=== PATIENT | male | born 1965 | race Caucasian/White ===

== ENCOUNTER 2021-09-07 10:16 | Outpatient (REF) | payer OTHER, SELFPAY ==
[2021-09-07 10:19] LABS: MANUAL DIFF FLAG NO
[2021-09-07 11:13] LABS: Basophils Percent Auto 0.3 % (0-2); Eosinophils Absolute Auto 0.1 X10*3/uL (0.0-0.4); Eosinophils Percent Auto 1.5 % (0-4); Hematocrit 44.9 % (42.0-52.0); Hemoglobin 15.6 g/dl (14.0-18.0); Imm Gran Abs Auto 0.04 X10*3/uL (0.00-0.03); Imm Gran Pct Auto 0.7 % (0.0-0.4); Lymphocytes Absolute Auto 1.8 X10*3/uL (1.2-4.9); Lymphocytes Percent Auto 29.2 % (20-40); Mean Corpuscular HGB Conc 34.7 g/dl (31.0-36.0); Mean Corpuscular Hemoglobin 31.1 pg (27.0-33.0); Mean Corpuscular Volume 89.6 fL (80.0-98.0); Mean Platelet Volume 10.3 fL (9.4-12.4); Monocytes Absolute Auto 0.6 X10*3/uL (0.1-1.2); Monocytes Percent Auto 9.3 % (2-11); Neutrophils Absolute Auto 3.5 x10*3/uL (2.0-8.3); Platelet Count 147 X10*3/uL (160-400); Red Blood Count 5.01 X10*6/uL (4.60-5.80); Red Cell Distribution Width 12.5 % (11.0-16.0)
[2021-09-07 11:17] LABS: Appearance Urine CLEAR; Color Urine YELLOW; Glucose Urine UA NEG (NEG); Leukocyte Esterase Urine NEG (NEG); Nitrite Urine NEG (NEG); Urine Blood NEG (NEG); Urine Ketones NEG (NEG); Urine Protein NEG (NEG-TRACE)
[2021-09-07 11:59] LABS: Alanine Aminotransferase 96 U/L (0-40); Albumin Level 4.3 g/dL (3.5-5.0); Alkaline Phosphatase 79 U/L (39-117); Anion Gap 13 (12-20); Aspartate Amino Transferase 43 U/L (5-37); Bilirubin Total 1.6 mg/dL (0.0-1.0); Blood Urea Nitrogen 23 mg/dL (9-16); Calcium 9.7 mg/dL (8.4-10.2); Carbon Dioxide 26 mmol/L (22-29); Chloride 102 mmol/L (96-108); Cholesterol 166 mg/dL; Estimated Glomerular Filt Rate > 60; Glucose Fasting 191 mg/dL (60-99); HDL Cholesterol 32 mg/dL; LDL Cholesterol Calculated 85 mg/dl; Potassium 4.1 mmol/L (3.3-5.1); Sodium 137 mmol/L (135-145); Total Protein 7.1 g/dL (6.5-8.0); Triglycerides 245 mg/dL
== END 2021-09-07 10:17 | disposition home or self-care (01) ==
LOC: HO.LNP 10:16
PROVIDERS: Visit Provider Internal Medicine
DX: Z00.00 Encounter for general adult medical examination without abnormal findings (principal); I10 Essential (primary) hypertension; R97.20 Elevated prostate specific antigen [PSA]; D69.6 Thrombocytopenia, unspecified; K75.81 Nonalcoholic steatohepatitis (NASH)
CPT/HCPCS: 80053; 80061; 81003; 84153; 85025

== ENCOUNTER 2021-11-10 09:41 | Outpatient (REF) | payer OTHER, SELFPAY ==
--- NOTE | ~2021-11-10 | US_ITS ---
EXAMINATION: US ABDOMEN LIMITED WITH LIVER ELASTOGRAPHY CLINICAL INFORMATION: Chopra. COMPARISON: None. TECHNIQUE: Real-time imaging of the abdominal viscera. Noninvasive ultrasound liver fibrosis assessment is performed using Carl ElastPQ point quantification shear wave elastography (2D-SWE) with a C5-2 MHz transducer. Multiple elastography samples are obtained. FINDINGS: PANCREAS: Normal. The visualized pancreatic head and body are normal in appearance. The remainder of the pancreas is obscured from visualization by the overlying bowel gas. LIVER: Normal. The liver demonstrates normal size, contour and increased echogenicity. No focal lesion or intrahepatic biliary duct dilatation. The right lobe measures 20.2 cm in length. The left lobe measures 12.9 cm in length. Portal flow is hepatopedal Shear wave liver elastography median stiffness is 1.74 m/s (reference: normal median stiffness is 1.3 m/s or less). IQR/median stiffness to assess sampling precision is 0.11 (reference: good quality data set is IQR/median stiffness of 0.15 or less). GALLBLADDER: Normal. The gallbladder is physiologically distended without evidence of stones, sludge, polyps, wall thickening or pericholecystic fluid. COMMON BILE DUCT: Normal in caliber measuring 0.28 cm in diameter. RIGHT KIDNEY: There is an anechoic cyst midpole measures 1.7 x 1.5 x 1.4 cm. No hydronephrosis. No renal calculi or focal parenchymal lesions. The kidney measures 13.3 cm in maximum dimension. FREE FLUID: None. US/US abdomen jimenez w elastography IMPRESSION: 1. Hepatic steatosis without focal lesion. Anechoic cyst right kidney. 2. Liver elastography: Median liver stiffness 1.74 m/s suggestive of cACLD ruled out . REFERENCE: Society of Radiologists in Ultrasound Liver Stiffness Thresholds (2020): LIVER STIFFNESS THRESHOLDS: *Liver Stiffness equal or less than 1.3 m/s: High probability of being normal. *Liver Stiffness less than 1.7 m/s: In the absence of other known clinical signs, rules out compensated advanced chronic liver disease. *Liver Stiffness 1.7-2.1 m/s: Suggestive of compensated advanced chronic liver disease but need further test for confirmation. *Liver Stiffness over 2.1 m/s: Rules in compensated advanced chronic liver disease. *Liver Stiffness over 2.4 m/s: Suggestive of clinically significant portal hypertension. QUALITY OF DATA SET: *IQR/Median value equal or less than 0.15 implies a quality data set. *IQR/Median value over 0.15 implies a poor quality data set. SIGNIFICANT CHANGE FROM PRIOR EXAM: Significant change if liver stiffness measurement is 10% or greater from prior exam. OTHER CONSIDERATIONS: The stage of liver fibrosis may be overestimated in the setting of acute hepatitis, liver inflammation, elevated liver function tests, hepatic vascular congestion, obstructive cholestasis, non-fasting state, and infiltrative diseases such as amyloidosis and lymphoma. In some patients with NAFLD, the liver stiffness thresholds for compensated advanced chronic liver disease may be lower. In causes other than viral hepatitis and NAFLD, liver stiffness thresholds are not well established.
== END 2021-11-10 09:42 | disposition home or self-care (01) ==
LOC: HO.US 09:41
PROVIDERS: PCP Internal Medicine; Visit Provider Internal Medicine
DX: K75.81 Nonalcoholic steatohepatitis (NASH) (principal)
CPT/HCPCS: 76705; 76981

== ENCOUNTER 2022-10-19 10:32 | Outpatient (REF) | payer OTHER, SELFPAY ==
[2022-10-19 10:38] LABS: MANUAL DIFF FLAG NO
[2022-10-19 10:47] LABS: Basophils Percent Auto 0.5 % (0-2); Eosinophils Absolute Auto 0.1 X10*3/uL (0.0-0.4); Eosinophils Percent Auto 1.6 % (0-4); Hematocrit 45.4 % (42.0-52.0); Hemoglobin 16.4 g/dl (14.0-18.0); Imm Gran Abs Auto 0.05 X10*3/uL (0.00-0.03); Imm Gran Pct Auto 0.9 % (0.0-0.4); Lymphocytes Absolute Auto 1.5 X10*3/uL (1.2-4.9); Lymphocytes Percent Auto 26.2 % (20-40); Mean Corpuscular HGB Conc 36.1 g/dl (31.0-36.0); Mean Corpuscular Hemoglobin 31.3 pg (27.0-33.0); Mean Corpuscular Volume 86.6 fL (80.0-98.0); Mean Platelet Volume 10.7 fL (9.4-12.4); Monocytes Absolute Auto 0.5 X10*3/uL (0.1-1.2); Monocytes Percent Auto 8.4 % (2-11); Neutrophils Absolute Auto 3.6 x10*3/uL (2.0-8.3); Neutrophils Percent Auto 62.4 % (45-73); Platelet Count 147 X10*3/uL (160-400); Red Blood Count 5.24 X10*6/uL (4.60-5.80); Red Cell Distribution Width 12.4 % (11.0-16.0); White Blood Count 5.7 X10*3/uL (4.8-10.8)
[2022-10-19 11:12] LABS: Appearance Urine Clear; Color Urine Yellow; Glucose Urine UA 250 mg/dL (Negative); Leukocyte Esterase Urine Negative (Negative); Nitrite Urine Negative (Negative); PH 5.5 (5.0-9.0); UMIC TRIGGER UA YES; Urine Blood Negative (Negative); Urine Ketones Trace mg/dL (Negative); Urine Protein 30 (1+) mg/dL (Neg-Trace)
[2022-10-19 11:18] LABS: Bacteria Urine None Seen (None Seen); Hyaline Casts Urine 0-2 /LPF (0-2); RBC Urine 0-2 /HPF (0-2); Squamous Epithelial Cell Urine 0-2 /HPF (0-2); WBC Urine 0-5 /HPF (0-5)
[2022-10-19 11:25] LABS: Estimated Average Glucose 220 mg/dL; Hemoglobin A1c % 9.3 %
[2022-10-19 11:38] LABS: Creatinine Urine 163.08 mg/dL; Microalbum/Creatinine Ratio Ur 128.1 ug/mg cr
[2022-10-19 12:13] LABS: Alanine Aminotransferase 99 U/L (0-40); Albumin Level 4.1 g/dL (3.5-5.0); Alkaline Phosphatase 82 U/L (39-117); Anion Gap 15 (12-20); Aspartate Amino Transferase 61 U/L (5-37); Bilirubin Total 2.4 mg/dL (0.0-1.0); Blood Urea Nitrogen 14 mg/dL (9-16); Calcium 9.3 mg/dL (8.4-10.2); Carbon Dioxide 25 mmol/L (22-29); Chloride 100 mmol/L (96-108); Cholesterol 161 mg/dL; Estimated Glomerular Filt Rate > 60; Glucose Fasting 281 mg/dL (60-99); HDL Cholesterol 31 mg/dL; LDL Cholesterol Calculated 74 mg/dl; Sodium 136 mmol/L (135-145); Total Protein 6.7 g/dL (6.5-8.0); Triglycerides 281 mg/dL
[2022-10-19 12:37] LABS: PSA,Total (Free>4and<10) 2.09 ng/mL (0.00-4.00)
== END 2022-10-19 10:33 | disposition home or self-care (01) ==
LOC: HO.LNP 10:32
PROVIDERS: Visit Provider Internal Medicine
DX: Z00.00 Encounter for general adult medical examination without abnormal findings (principal); Z12.5 Encounter for screening for malignant neoplasm of prostate; R97.20 Elevated prostate specific antigen [PSA]; E11.9 Type 2 diabetes mellitus without complications; D69.6 Thrombocytopenia, unspecified
CPT/HCPCS: 80053; 80061; 81001; 82043; 83036; 84153; 85025

== ENCOUNTER 2023-10-21 10:38 | Outpatient (REF) | payer OTHER, SELFPAY ==
[2023-10-21 10:58] LABS: MANUAL DIFF FLAG NO
[2023-10-21 11:14] LABS: Basophils Percent Auto 0.3 % (0-2); Eosinophils Absolute Auto 0.1 X10*3/uL (0.0-0.4); Eosinophils Percent Auto 1.1 % (0-4); Hematocrit 45.9 % (42.0-52.0); Hemoglobin 16.1 g/dl (14.0-18.0); Imm Gran Abs Auto 0.07 X10*3/uL (0.00-0.03); Imm Gran Pct Auto 1.1 % (0.0-0.4); Lymphocytes Absolute Auto 1.8 X10*3/uL (1.2-4.9); Lymphocytes Percent Auto 28.4 % (20-40); Mean Corpuscular HGB Conc 35.1 g/dl (31.0-36.0); Mean Corpuscular Hemoglobin 31.4 pg (27.0-33.0); Mean Corpuscular Volume 89.5 fL (80.0-98.0); Mean Platelet Volume 10.6 fL (9.4-12.4); Monocytes Absolute Auto 0.6 X10*3/uL (0.1-1.2); Monocytes Percent Auto 9.4 % (2-11); Neutrophils Absolute Auto 3.7 x10*3/uL (2.0-8.3); Neutrophils Percent Auto 59.7 % (45-73); Platelet Count 157 X10*3/uL (160-400); Red Blood Count 5.13 X10*6/uL (4.60-5.80); Red Cell Distribution Width 12.8 % (11.0-16.0); White Blood Count 6.3 X10*3/uL (4.8-10.8)
[2023-10-21 11:18] LABS: Appearance Urine Clear; Color Urine Yellow; Glucose Urine UA Negative (Negative); Leukocyte Esterase Urine Trace (Negative); Nitrite Urine Negative (Negative); PH 5.5 (5.0-9.0); UMIC TRIGGER UACC YES; Urine Blood Negative (Negative); Urine Ketones Trace mg/dL (Negative); Urine Protein Trace mg/dL (Neg-Trace)
[2023-10-21 11:21] LABS: Bacteria Urine None Seen (None Seen); Hyaline Casts Urine 0-2 /LPF (0-2); RBC Urine 0-2 /HPF (0-2); Squamous Epithelial Cell Urine 0-2 /HPF (0-2); WBC Urine 0-5 /HPF (0-5)
[2023-10-21 11:37] LABS: Estimated Average Glucose 151 mg/dL; Hemoglobin A1c % 6.9 % (<6.0)
[2023-10-21 11:43] LABS: Alanine Aminotransferase 55 U/L (0-40); Albumin Level 4.2 g/dL (3.5-5.0); Alkaline Phosphatase 65 U/L (39-117); Anion Gap 15 (12-20); Aspartate Amino Transferase 27 U/L (5-37); Bilirubin Total 2.1 mg/dL (0.0-1.0); Blood Urea Nitrogen 17 mg/dL (9-16); Calcium 9.6 mg/dL (8.4-10.2); Carbon Dioxide 28 mmol/L (22-29); Chloride 99 mmol/L (96-108); Cholesterol 167 mg/dL (<200); Estimated Glomerular Filt Rate > 60; Glucose Fasting 166 mg/dL (60-99); HDL Cholesterol 38 mg/dL (>40); LDL Cholesterol Calculated 91 mg/dL (<100); Sodium 138 mmol/L (135-145); Total Protein 6.9 g/dL (6.5-8.0); Triglycerides 194 mg/dL (<150)
[2023-10-21 12:01] LABS: Microalbum/Creatinine Ratio Ur 54.1 ug/mg cr (<30)
[2023-10-21 14:18] LABS: PSA,Total (Free>4and<10) 2.04 ng/mL (0.00-4.00)
== END 2023-10-21 10:39 | disposition home or self-care (01) ==
LOC: HO.LNP 10:38
PROVIDERS: Visit Provider Internal Medicine
DX: Z00.00 Encounter for general adult medical examination without abnormal findings (principal); Z12.5 Encounter for screening for malignant neoplasm of prostate; I10 Essential (primary) hypertension; R97.20 Elevated prostate specific antigen [PSA]; D69.6 Thrombocytopenia, unspecified; E11.9 Type 2 diabetes mellitus without complications
CPT/HCPCS: 80053; 80061; 81001; 82043; 82570; 83036; 84153; 85025

== ENCOUNTER 2024-10-26 07:00 | Outpatient (REF) | payer OTHER, SELFPAY ==
[2024-10-26 10:44] LABS: MANUAL DIFF FLAG NO
[2024-10-26 11:18] LABS: Appearance Urine Clear; Color Urine Dark Yellow; Glucose Urine UA 100 mg/dL (Negative); Leukocyte Esterase Urine Negative (Negative); Nitrite Urine Negative (Negative); PH 5.5 (5.0-9.0); Urine Blood Negative (Negative); Urine Ketones Trace mg/dL (Negative); Urine Protein Trace mg/dL (Neg-Trace)
[2024-10-26 11:24] LABS: Basophils Percent Auto 0.4 % (0-2); Eosinophils Absolute Auto 0.1 X10*3/uL (0.0-0.4); Hematocrit 46.4 % (42.0-52.0); Hemoglobin 16.1 g/dl (14.0-18.0); Imm Gran Abs Auto 0.06 X10*3/uL (0.00-0.03); Imm Gran Pct Auto 1.2 % (0.0-0.4); Lymphocytes Absolute Auto 1.4 X10*3/uL (1.2-4.9); Lymphocytes Percent Auto 27.9 % (20-40); Mean Corpuscular HGB Conc 34.7 g/dl (31.0-36.0); Mean Corpuscular Hemoglobin 31.4 pg (27.0-33.0); Mean Corpuscular Volume 90.6 fL (80.0-98.0); Mean Platelet Volume 10.3 fL (9.4-12.4); Monocytes Absolute Auto 0.5 X10*3/uL (0.1-1.2); Monocytes Percent Auto 10.1 % (2-11); Neutrophils Absolute Auto 3.1 x10*3/uL (2.0-8.3); Neutrophils Percent Auto 59.4 % (45-73); Platelet Count 156 X10*3/uL (160-400); Red Blood Count 5.12 X10*6/uL (4.60-5.80); Red Cell Distribution Width 12.6 % (11.0-16.0); White Blood Count 5.1 X10*3/uL (4.8-10.8)
[2024-10-26 11:51] LABS: Alanine Aminotransferase 109 U/L (0-40); Albumin Level 4.2 g/dL (3.5-5.0); Anion Gap 13 (12-20); Aspartate Amino Transferase 81 U/L (5-37); Bilirubin Total 2.3 mg/dL (0.0-1.0); Blood Urea Nitrogen 17 mg/dL (9-16); Calcium 9.4 mg/dL (8.4-10.2); Carbon Dioxide 27 mmol/L (22-29); Chloride 101 mmol/L (96-108); Cholesterol 174 mg/dL (<200); Estimated Glomerular Filt Rate > 60; Glucose Fasting 240 mg/dL (60-99); HDL Cholesterol 37 mg/dL (>40); LDL Cholesterol Calculated 92 mg/dL (<100); Potassium 3.9 mmol/L (3.3-5.1); Sodium 137 mmol/L (135-145); Total Protein 7.1 g/dL (6.5-8.0); Triglycerides 227 mg/dL (<150)
[2024-10-26 11:59] LABS: PSA,Total (Free>4and<10) 1.73 ng/mL (0.00-4.00)
[2024-10-26 12:01] LABS: Estimated Average Glucose 214 mg/dL; Hemoglobin A1C 316.2863 umol/L; Hemoglobin A1c % 9.1 % (<6.0)
--- OUTSIDE RECORDS SUMMARY | 2024-10-26 12:15 | XMS_ITS ---
Author Organization Antolin Sanchez MD Address [address] [place], [place] [id number] Care Team Providers Care Risk Consulting Treasury Director Name Role Phone Antolin Sanchez Primary Care Provider Results Component Value Reference Range Notes Complete Blood Count Auto Di ff (Not yet reviewed by provider) Interpretation: Performing Lab:[facility], [address] [place] [id number] Notes/Report: White Blood Count 5.1 4.8-10.8 X10*3/uL Red Blood Count 5.12 4.60-5.80 X10*6/uL Hemoglobin 16.1 14.0-18.0 g/dl Hematocrit 46.4 42.0-52.0 % Mean Corpuscular Volume 90.6 80.0-98.0 fL Mean Corpuscular Hemoglobin 31.4 27.0-33.0 pg Mean Corpuscular HGB Conc 34.7 31.0-36.0 g/dl Red Cell Distribution Width 12.6 11.0-16.0 % Platelet Count 156 160-400 X10*3/uL Mean Platelet Volume 10.3 9.4-12.4 fL Neutrophils Percent Auto 59.4 45-73 % Imm Gran Pct Auto 1.2 0.0-0.4 % Lymphocytes Percent Auto 27.9 20-40 % Monocytes Percent Auto 10.1 2-11 % Eosinophils Percent Auto 1.0 0-4 % Basophils Percent Auto 0.4 0-2 % NRBC Pct Auto 0.0 0.0-0.2 /100WBC Neutrophils Absolute Auto 3.1 2.0-8.3 x10*3/u L Imm Gran Abs Auto 0.06 0.00-0.03 X10*3/uL Lymphocytes Absolute Auto 1.4 1.2-4.9 X10*3/u L Monocytes Absolute Auto 0.5 0.1-1.2 X10*3/uL Eosinophils Absolute Auto 0.1 0.0-0.4 X10*3/u L Basophils Absolute Auto 0.0 0.0-0.2 X10*3/uL NRBC Abs Auto 0.000 0.0-0.012 X10*3/uL PSA,Total (Free>4and<10) (N ot yet reviewed by provider) Interpretation: Performing Lab:[address] [id number] Notes/Report: PSA,Total (Free>4and<10) 1.73 0.00-4.00 ng/mL A Free PSA was not performed: The percentage of Free PSA can be used to enhance the differentiation of prostate cancer from benign prostatic disease in subjects whose PSA levels are between 4.0 and 10.0 ng/mL. For subjects whose PSA levels are below 4.0 or above 10.0 ng/mL, the risk of prostate cancer is determined on the basis of the PSA alone. Therefore the % Free PSA is recommended only for those subjects whose PSA levels are between 4.0 and 10.0 ng/mL. PSA methodology: Evans Alinity i Chemiluminescent Microparticle Immunoassay (CMIA) Hemoglobin A1c (Not yet revi ewed by provider) Interpretation: Performing Lab:[address] [id number] Notes/Report: Hemoglobin A1c % 9.1 <6.0 % Hemoglobin A1C Reference Range Adults: 4.8 - 6.0 % Non diabetic: < 6.0 % Goal: < 7.0 % Additional Action Suggested: > 8.0 % Note: Hemoglobin A1c results are invalid for patients with abnormal amounts of HbF. Blood transfusions may impact the HbA1c concentration in the patient sample. Estimated Average Glucose 214 eAG = Estimated average glucose which is %A1C expressed as average glucose, using the formula of the Y5P-Hjizvtt Average Glucose study (ADAG), Diabetes Care, Vol.31,#8, May. 2007 REASON FOR VISIT yearly fasting labs Encounters Encounter Location Date Provider Diagnosis Antolin Sanchez MD [address] [place], [place] [phone] 10/26/2024 Antolin Sanchez Blood tests for rout ine general physical examination Z00.00 ; Essential hypertension I10 ; Thrombocytopenia D69.6 and Type 2 diabetes mellitus without complication, without long-term current use of insulin E11.9 Assessments Encounter Date Diagnosis (ICD Code) Assessment Notes Treatment Notes Treatment Clinical Notes Section Notes 10/26/2024 Blood tests for routine general physical examination (ICD-10 - Z00.00) 10/26/2024 Essential hypertension (ICD-10 - I10) 10/26/2024 Thrombocytopenia (ICD-10 - D69.6) 10/26/2024 Type 2 diabetes mellitus without complication, without long-term current use of insulin (ICD-10 - E11.9) Plan Of Treatment Pending Test Test Name Order Date Complete Blood Count Auto Diff [facility] [place]. Panel Fast Lipid Panel 10/26/2024 PSA,Total (Free>4and<10) 10/26/2024 Microalbumin, Random 10/26/2024 Hemoglobin A1c 10/26/2024 UA ClnCatch+Micro w/rflx Cult 10/26/2024 Next Appt Details Provider Name:Antolin Samuels iemana, 11/02/2024 08:30:00 AM, [address], [address], [place], [place], [phone], Progress Notes * Juan Alberto DAVENPORTDOB:[birth year] (58 yo M)Acc No.[id number]:10/26/2024 Progress Note Patient:?Juan Alberto DAVENPORT Provider:?Antolin Sanchez MD :1965???Age:58 Y???Sex:Male Luis e:10/26/2024 Address:[address] [place] [address], [facility] [id number] Subjective: * Chief Complaints: * ???1. Yearly fasting labs. * Medical History:? Objective: * Vitals:? Assessment: * Assessment: 1.?Blood tests for routine g eneral physical examination - Z00.00 (Primary)???2.?Essential hypertension - I10???3.?Thrombocytopenia - D69.6???4.?Type 2 diabetes mellitus without complication, without long-term current use of insulin - E11.9??? Plan: * Treatment: 2.?Essential hypertension?LAB: Complete Blood Count Auto Diff (Collection Date & Time - 10/26/2024 07:00 AM) ?LAB: [facility] [place]. Panel Fast ?LAB: Lipid Panel ?LAB: PSA,Total (Free>4and<10) (Collection Date & Time - 10/26/2024 07:00 AM) ?LAB: Microalbumin, Random ?LAB: Hemoglobin A1c (Collection Date & Time - 10/26/2024 07:00 AM) ?LAB: UA ClnCatch+Micro w/rflx Cult 3.?Thrombocytopenia?LAB: Complete Blood Count Auto Diff (Collection Date & Time - 10/26/2024 07:00 AM) ?LAB: [facility] [place]. Panel Fast ?LAB: Lipid Panel ?LAB: PSA,Total (Free>4and<10) (Collection Date & Time - 10/26/2024 07:00 AM) ?LAB: Microalbumin, Random ?LAB: Hemoglobin A1c (Collection Date & Time - 10/26/2024 07:00 AM) ?LAB: UA ClnCatch+Micro w/rflx Cult 4.?Type 2 diabetes mellitus without complication, without long-term current use of insulin?LAB: Complete Blood Count Auto Diff (Collection Date & Time - 10/26/2024 07:00 AM) ?LAB: [facility] [place]. Panel Fast ?LAB: Lipid Panel ?LAB: PSA,Total (Free>4and<10) (Collection Date & Time - 10/26/2024 07:00 AM) ?LAB: Microalbumin, Random ?LAB: Hemoglobin A1c (Collection Date & Time - 10/26/2024 07:00 AM) ?LAB: UA ClnCatch+Micro w/rflx Cult * Procedure Codes:?32955 VENIP UNCT, ROUTINE* * * The named appointment provid er may or may not be the originator of this progress note, and it is not deemed complete until electronically signed by the appointment provider. Sign off status: Pending * Provider:?Antolin Sanchez MD Date:?0 10/26/2024 Generated for Kinjal boyd/Nayla/Jasonitting on:?10/26/2024 12:15 PM EST
--- OUTSIDE RECORDS SUMMARY | 2024-10-26 12:15 | XMS_ITS ---
Author Organization Antolin Sanchez MD Address [address] [place] [phone] Care Team Providers Care Process Description Writer Name Role Phone Antolin Sanchez Primary Care Provider Allergies No Known Allergies Results Component Value Reference Range Notes Hemoglobin A1c Reviewed date:07/31/2024 09:04:59 AM Interpretation: Performing Lab: Notes/Report: Hemoglobin A1c 8.1 Glucose, finger stick Reviewed date:07/31/2024 08:58:09 AM Interpretation: Performing Lab: Notes/Report: Value 184 REASON FOR VISIT 3 MO F/U Medications Medication SIG (Take, Route, Frequency, Duration) Notes Start Date End Date Status metFORMIN HCl 500 MG TAKE ONE TABLET BY MOUTH TWICE A DAY WITH MEALS for 30 Active Omeprazole 20 MG TAKE ONE CAPSULE BY MOUTH EVERY DAY for 90 Active metFORMIN HCl ER (MOD) 1000 MG 0ne tablet Orally Once a day for 90 days 07/31/2024 Active Sildenafil Citrate 100 MG TAKE 1/2 TABLE T BY MOUTH ONCE A DAY NEEDED. Active Lisinopril-hydroCHLOROthia zide 20-12.5 MG TAKE ONE TABLET BY MOUTH EVERY DAY Active Immunizations Vaccine Route Administration Date Status Comme nts Fluarix Quadrivalent - 150 IM Intramuscular 07/31/2024 Adm inistered Vital Signs Blood pressure systolic 140 mm Hg 07/31/20 24 Blood pressure diastolic 82 mm Hg 024 Height 72.5 in 07/31/2024 Weight 272 lbs 07/31/2024 BMI 36.38 kg/m2 07/31/2024 weight is up 2 pounds since 04-27-24 Encounters Encounter Location Date Provider Diagnosis Antolin Sanchez MD [address] [place] [address] [address] [place], [place] [phone] 07/31/2024 Antolin Sanchez Type 2 diabetes mellitus without complication, without long-term current use of insulin E11.9 ; Dysplastic nevi D23.9 ; Essential hypertension I10 and Encounter for immunization Z23 Assessments Encounter Date Diagnosis (ICD Code) Assessment Notes Treatment Notes Treatment Clinical Notes Section Notes 07/31/2024 Type 2 diabetes mellitus without complication, without long-term current use of insulin (ICD-10 - E11.9) has trouble remembering the second pill, patient verbalized understanding of change in medication 07/31/2024 Dysplastic nevi (ICD-10 - D23.9) will continue to monitor 07/31/2024 Essential hypertension (ICD-10 - I10) stable, will continue current regiment 07/31/2024 Encounter for immunization (ICD-10 - Z23) Plan Of Treatment Medication Medication Name Sig Start Date Stop Date Notes metFORMIN HCl ER (MOD) 1000 MG 0ne table t Orally Once a day for 90 days 07/31/2024 Lisinopril-hydroCHLOROthiazi de 20-12.5 MG TAKE ONE TABLET BY MOUTH EVERY DAY Treatment Notes Assessment Notes Type 2 diabetes mellitus wit hout complication, without long-term current use of insulin has trouble remembering the second pill, patient verbalized understanding of change in medication Dysplastic nevi will continue to mon itor Essential hypertension stable, will cont inue current regiment Next Appt Details Provider Name:Antolin Samuels ier, 11/02/2024 08:30:00 AM, [address] [place] [address], [address], [place], [place], [phone], Progress Notes * Juan Alberto DAVENPORTDOB:[birth year] (58 yo M)Acc No.[id number]:07/31/2024 Progress Notes Patient:?Juan Alberto Davenport Provider:?Antolin Sanchez MD :1965???Age:58 Y???Sex:Male Luis e:07/31/2024 Address:[address] [place] [address], [id number] Subjective: * Chief Complaints: * ???3 MO F/U * HPI: ???Symptom(s):? patient is a 58 yo male here for 3 month follow up visit. has people around all the time. daughter is living with him. * ROS:?General/Constitutional:?Denies?Chills.?Denies?Fatigue.?Denies?Fever.?Denies?Headache.?ENT:?Patient denies?decreased sense of smell , any loss of taste , sore throat.?Denies?Sore throat.?Respiratory:?Denies?Cough.?Denies?Shortness of breath at rest.?Denies?Shortness of breath with exertion.?Gastrointestinal:?Denies?Diarrhea.?Denies?Nausea.?Musculoskeletal:?Patient denies?muscle aches.?Peripheral Vascular:?Patient denies?red and blue toes.? * Medical History:? * Surgical History:? * Hospitalization/Major Diagno stic Procedure:? * Medications:?TakingSildenafi l Citrate 100 MG Tablet TAKE 1/2 TABLET BY MOUTH ONCE A DAY NEEDED. Lisinopril-hydroCHLOROthiazide 20-12.5 MG Tablet TAKE ONE TABLET BY MOUTH EVERY DAY Omeprazole 20 MG Capsule Delayed Release TAKE ONE CAPSULE BY MOUTH EVERY DAY metFORMIN HCl 500 MG Tablet TAKE ONE TABLET BY MOUTH TWICE A DAY WITH MEALS Medication List reviewed and reconciled with the patientTaking Sildenafil Citrate 100 MG Tablet TAKE 1/2 TABLET BY MOUTH ONCE A DAY NEEDED. Taking Lisinopril-hydroCHLOROthiazide 20-12.5 MG Tablet TAKE ONE TABLET BY MOUTH EVERY DAY Taking Omeprazole 20 MG Capsule Delayed Release TAKE ONE CAPSULE BY MOUTH EVERY DAY Taking metFORMIN HCl 500 MG Tablet TAKE ONE TABLET BY MOUTH TWICE A DAY WITH MEALS Medication List reviewed and reconciled with the patient * Allergies:?N.K.D.A.yes[Aller gies Verified] Objective: * Vitals:?Ht: 72.5, Wt:272, BM I:36.38, BP:140/82, Repeat BP:120/78 weight is up 2 pounds since 04-27-24. * Examination: ???General Examination: ?GENERAL APPEARANCE:?alert, well hydrated, in no distress.?HEAD:?normocephalic.?SKIN:?abnormal with multiple dysplastic nevi on back none look suspicious.?HEART:?no murmurs, rubs, gallops , regular rate and rhythm.?LUNGS:?no wheezes, rales, rhonchi , good air movement , clear to auscultation bilaterally.? Assessment: * Assessment: 1.?Type 2 diabetes mellitus without complication, without long-term current use of insulin - E11.9 (Primary)?2.?Dysplastic nevi - D23.9?3.?Essential hypertension - I10?4.?Encounter for immunization - Z23? Plan: * Treatment: ? Value Reference Range ?Hemoglobin A1c 8.1 * Zoila Maciel 4 09:04:56 AM EDT > ?LAB: Glucose, finger stick* ? Value Reference Range ?Value 184 * Zoila Maciel 4 08:58:07 AM EDT > Notes: has trouble remembering the second pill, patient verbalized understanding of change in medication??2.?Dysplastic nevi? Notes: will continue to monitor??3.?Essential hypertension? Continue Lisinopril-hydroCHLOROthiazide Tablet, 20-12.5 MG, TAKE ONE TABLET BY MOUTH EVERY DAY. ? Notes: stable, will continue current regiment?? * Immunizations:? Fluarix Quadrivalent - 150 : 0.5 mL (Dose No:1) (Route: Intramuscular) given by Zoila Maciel on Left Deltoid * Procedure Codes:?17985 ASSAY , GLUCOSE, BLOOD QUANT, Modifiers: QW 57846 GLYCATED HEMOGLOBIN TEST, Modifiers: QW 95996 FLU VACCINE NO PRESERV 3 & >49518 IMMUNIZATION ADMIN * * Sign off status: Completed true * Provider:?Antolin Sanchez MD Date:?1 Generated for Kinjal boyd/Nayla/Jasonitting on:?10/26/2024 12:15 PM EST History and Physical Notes * HPI (History of Present Illness) Category Sub-Category Detail Notes Category Not es Symptom(s) patient is a 58 yo male here for 3 month follow up visit. has people around all the time. daughter is living with him. Examination Category Sub-Category Detail Notes Category Not es General Examination GENERAL APPEARANCE: alert, w ell hydrated, in no distress HEAD: normocephalic HEART: no murmurs, rubs, ga llops , regular rate and rhythm LUNGS: no wheezes, rales, r honchi , good air movement , clear to auscultation bilaterally SKIN: abnormal with multip le dysplastic nevi on back none look suspicious
--- OUTSIDE RECORDS SUMMARY | 2024-10-26 12:15 | XMS_ITS | Patient Health Record ---
Author Organization Antolin Sanchez MD Address [address] [place], [place] [id number] Care Team Providers Care Director Stage Name Role Phone Antolin Sanchez Primary Care Provider Allergies No Known Allergies Results Component Value Reference Range Notes Hemoglobin A1c Reviewed date:04/27/2024 09:02:46 AM Interpretation: Performing Lab: Notes/Report: Hemoglobin A1c 8.5 Hemoglobin A1c Reviewed date:07/31/2024 09:04:59 AM Interpretation: Performing Lab: Notes/Report: Hemoglobin A1c 8.1 Complete Blood Count Auto Di ff (Not yet reviewed by provider) Interpretation: Performing Lab:[facility], [address] [place] [phone] Notes/Report: White Blood Count 5.1 4.8-10.8 X10*3/uL [...] Abs Auto 0.000 0.0-0.012 X10*3/uL PSA,Total (Free>4and<10) (No t yet reviewed by provider) Interpretation: Performing Lab:[address] [phone] Notes/Report: PSA,Total (Free>4and<10) 1.73 0.00-4.00 ng/mL A [...] yet revi ewed by provider) Interpretation: Performing Lab:[address] [phone] Notes/Report: Hemoglobin A1c % 9.1 <6.0 % [...] average glucose, using the formula of the [id number]-Ytfdmec Average Glucose study (ADAG), Diabetes Care, Vol.31,#8, May. 2007 Occult Blood, Stool, Guaiac Reviewed date:10/28/2023 01:44:17 PM Interpretation:Negative Performing Lab: Notes/Report: Negative Glucose, finger stick Reviewed date:04/27/2024 08:55:52 AM Interpretation: Performing Lab: Notes/Report: Value 308 Glucose, finger stick Reviewed date:07/31/2024 08:58:09 AM Interpretation: Performing Lab: Notes/Report: Value 184 UA CC w/rflx Micro + Cult (N ot yet reviewed by provider) Interpretation: Performing Lab:[facility], [address] [place] [phone] Notes/Report: [id number] 0700 Urine, Clean Catch Color Urine Dark Yellow Appearance Urine Clear PH 5.5 5.0-9.0 Glucose Urine UA 100 Negative mg/dL Urine Blood Negative Negative Specific [place] - Urine 1.020 1.005-1.025 Urine Protein Trace Neg-Trace mg/dL Urine Ketones Trace Negative mg/dL Nitrite Urine Negative Negative Leukocyte Esterase Urine Negative Negative Reason For Referral Reason dysplastic nevus i ns referral needed for [facility] appt booked for 02-14-2025 at 7:30am Diagnosis 1 Dysplastic nevus (D2 3.9) Referral Organization Antolin Sanchez MD Referring Provider First Name Antolin Referring Provider Last Name Laura Referring Provider Speciality Internal M edicine Referred Provider Young Gerardo Referred Provider Specialty Dermatology General Notes Swetha Kee 10:15:03 AM EST > referral info form mailed to patient , Swetha Kee 11/11/2023 09:02:33 AM EST > left message for patient to call office with appt info , Swetha Kee 12/06/2023 08:34:03 AM EST > left another message for patient to call office regarding referral , Swetha Kee 12/06/2023 08:39:21 AM EST > patient called back appt is booked for 02-14-2025 at 7:30am, referral info l put in folder to do in 2024, Swetha Kee 04/09/2024 01:49:24 PM EDT > appt is with Dr. Justus Sandoval [phone], Swetha Kee 04/09/2024 02:19:16 PM EDT > referral needs to be under Dr. [id number] Referral Priority Routine Referral Appointment Date 02/14/2025 Medications Medication SIG (Take, Route, Frequency, Duration) Notes Start Date End Date Status metFORMIN HCl 500 MG TAKE ONE TABLET BY MOUTH TWICE A DAY WITH MEALS for 30 Active Lisinopril-hydroCHLOROthia zide 20-12.5 MG TAKE ONE TABLET BY MOUTH EVERY DAY for 90 Active Omeprazole 20 MG TAKE ONE CAPSULE BY MOUTH EVERY DAY for 90 Active metFORMIN HCl ER 500 MG 2tabs Orally Onc e a day for 90 days 07/31/2024 Active metFORMIN HCl ER (MOD) 1000 MG 0ne tablet Orally Once a day for 90 days 07/31/2024 Active Sildenafil Citrate 100 MG TAKE 1/2 TABLE T BY MOUTH ONCE A DAY NEEDED. Active Immunizations Vaccine Route Administration Date Status Comme nts Fluarix Quadrivalent IM Intramuscular 07/18/2018 Administe red Fluarix Quadrivalent IM Intramuscular 07/31/2019 Administe red Fluarix Quadrivalent IM Intramuscular 08/18/2020 Administe red SARS-COV-2 Pfizer Unknown 11/22/2020 Administered SARS-COV-2 Pfizer Unknown 12/15/2020 Administered Fluarix Quadrivalent Unknown 06/30/2021 Administered SARS-COV-2 Pfizer Unknown 09/22/2021 Administered Fluarix Quadrivalent IM Intramuscular 10/19/2022 Administe red Fluarix Quadrivalent - 150 IM Intramuscular 10/21/2023 Adm inistered Fluarix Quadrivalent - 150 IM Intramuscular 07/31/2024 Adm inistered Flu Vaccine Unknown 10/13/2015 Refused Fluarix Quadrivalent Unknown 06/01/2016 Refused Fluarix Quadrivalent Unknown 11/29/2016 Refused Fluarix Quadrivalent Unknown 07/12/2017 Refused Social History Tobacco Use: Social History Observation Description Date Details (start date - stop date) Never Smoker NA - NA Tobacco Use/Smoking Question Answer Notes Patient is a nonsmoker Additional Findings: Tobacco Non-User Cu rrent non-smoker, currently using no form of tobacco Alcohol Screen Question Answer Notes Did you have a drink contain ing alcohol in the past year? Yes How often did you have a dri nk containing alcohol in the past year? 2 to 4 times a month (2 points) How many drinks did you have on a typical day when you were drinking in the past year? 1 or 2 drinks (0 point) How often did you have 6 or more drinks on one occasion in the past year? Never (0 point) Points 2 Interpretation Negative Section Notes: smokes cigars when he golfs smokes cigars when he golfs smokes cigars when he golfs smokes cigars when he golfs Problems Problem Type SNOMED Code ICD Code Onset Dates Problem Status W/U Status Risk Notes Problem 086802760 Thrombocytopenia (D69.6) Active confirmed Problem 892857963 Gastroesophageal reflux disease without esophagitis (K21.9) Active confirmed Problem 18000037 Essential hypertension (I10) Active confirmed Problem 16215989 Obstructive slee p apnea syndrome (G47.33) Active confirmed Problem 711012152 Non morbid obesi ty due to excess calories (E66.09) Active confirmed Problem 498307808 NAVARRO (nonalcohol ic steatohepatitis) (K75.81) Active confirmed Problem 459656676 Vasculogenic erectile dysfunction, unspecified vasculogenic erectile dysfunction type (N52.9) Active confirmed Problem 571199302 Rising PSA level (R97.20) Active confirmed Problem 36379516 VINCENT (obstructive sleep apnea) (G47.33) Active confirmed Problem 957638843 BMI 37.0-37.9, a dult (Z68.37) Active confirmed Problem 223327651 Type 2 diabetes mellitus without complication, without long-term current use of insulin (E11.9) Active confirmed Vital Signs Blood pressure diastolic 82 mm Hg 07/31/2024 estuardo ght is up 2 pounds since 04-27-24 Height 72.5 in 07/31/2024 weight is up 2 pounds since 04-27-24 Blood pressure systolic 140 mm Hg 07/31/2024 weig ht is up 2 pounds since 04-27-24 Weight 272 lbs 07/31/2024 weight is up 2 pounds since 04-27-24 BMI 36.38 kg/m2 07/31/2024 weight is up 2 pounds since 04-27-24 Encounters Encounter Location Date Provider Diagnosis Antolin Sanchez MD [facility] [address] [place] [phone] 10/26/2024 Antolin Sanchez Blood tests for rout ine general physical examination Z00.00 ; Essential hypertension I10 ; Thrombocytopenia D69.6 and Type 2 diabetes mellitus without complication, without long-term current use of insulin E11.9 Antolin Sanchez MD [address] [place] [address] [id number] 10/28/2023 Antolin Sanchez Rising PSA level R97 .20 ; Encounter for general adult medical examination without abnormal findings Z00.00 ; Type 2 diabetes mellitus without complication, without long-term current use of insulin E11.9 ; Dysplastic nevus D23.9 ; Essential hypertension I10 ; Vasculogenic erectile dysfunction, unspecified vasculogenic erectile dysfunction type N52.9 ; Gastroesophageal reflux disease without esophagitis K21.9 ; Colon cancer screening Z12.11 and Depression screening Z13.31 Antolin Sanchez MD [address] [place] [phone] 04/27/2024 Antolin Sanchez Type 2 diabetes mellitus without complication, without long-term current use of insulin E11.9 and Dysplastic nevi D23.9 Antolin Sanchez MD [address] [place] [address] [address] [place] [id number] 07/31/2024 Antolin Sanchez Type 2 diabetes mellitus without complication, without long-term current use of insulin E11.9 ; Dysplastic nevi D23.9 ; Essential hypertension I10 and Encounter for immunization Z23 Antolin Sanchez MD [address] [place] [phone] 06/22/2024 Antolin Sanchez MD [address] [place] [address] [id number] 07/31/2024 Antolin Sanchez Assessments Encounter Date Diagnosis (ICD Code) Assessment Notes Treatment Notes Treatment Clinical Notes Section Notes 10/26/2024 Blood tests for routine general physical examination (ICD-10 - Z00.00) 10/28/2023 Rising PSA level (ICD-10 - R97.20) has returned to normal 10/28/2023 Encounter for general adult medical examination without abnormal findings (ICD-10 - Z00.00) labs reviewed and discussed with patient 04/27/2024 Type 2 diabetes mellitus without complication, without long-term current use of insulin (ICD-10 - E11.9) 1 hour PP. not taking meds all the time. is going to start exercise and recheck 04/27/2024 Dysplastic nevi (ICD-10 - D23.9) don't see any suspicious lesions. will follow up with derm 07/31/2024 Type 2 diabetes mellitus without complication, without long-term current use of insulin (ICD-10 - E11.9) has trouble remembering the second pill, patient verbalized understanding of change in medication 07/31/2024 Dysplastic nevi (ICD-10 - D23.9) will continue to monitor 10/26/2024 Essential hypertension (ICD-10 - I10) 10/28/2023 Type 2 diabetes mellitus without complication, without long-term current use of insulin (ICD-10 - E11.9) adequate control 07/31/2024 Essential hypertension (ICD-10 - I10) stable, will continue current regiment 10/26/2024 Thrombocytopenia (ICD-10 - D69.6) 10/28/2023 Dysplastic nevus (ICD-10 - D23.9) [facility] to [facility]/ referral info form mailed to patient with upcoming appts 07/31/2024 Encounter for immunization (ICD-10 - Z23) 10/26/2024 Type 2 diabetes mellitus without complication, without long-term current use of insulin (ICD-10 - E11.9) 10/28/2023 Essential hypertension (ICD-10 - I10) stable, will continue current regiment 10/28/2023 Vasculogenic erectile dysfunction, unspecified vasculogenic erectile dysfunction type (ICD-10 - N52.9) stable, will continue with current regiment 10/28/2023 Gastroesophageal reflux disease without esophagitis (ICD-10 - K21.9) stable, will continue current regiment 10/28/2023 Colon cancer screening (ICD-10 - Z12.11) guaiac negative 10/28/2023 Depression screening (ICD-10 - Z13.31) negative screen Plan Of Treatment Pending Test Test Name Order Date Electrocardiogram (EKG) 07/27/2018 Electrocardiogram (EKG) 02/24/2012 Complete Blood Count Auto Diff 5 Comprehensive Whitman. Panel Fast 5 Lipid Panel 10/26/2024 PSA,Total (Free>4and<10) 10/26/2024 Microalbumin, Random 10/26/2024 US abdomen jimenez w elastography 09/11/2021 Hemoglobin A1c 10/26/2024 UA CC w/rflx Micro + Cult 10/26/2024 UA ClnCatch+Micro w/rflx Cult 10/26/2024 Next Appt Details Provider Name:Antolin Samuels ier, 11/02/2024 08:30:00 AM, [address] [place] [address], [address], [place], [place], [phone], Insurance Providers Payer Name Payer Address Payer Phone Subscriber Number Group Number Insured Name Patient Relationship to Insured Coverage Start Date Coverage End Date [facility] [address] [employer] [id number] Juan Alberto Davenport Self - patient is the insured Medical (General) History Medical History History ICD Code Refuses flu shot - 08/18/12 colonoscopy discussed 4; colonoscopy 09/06/2016 w/Dr. Simmons due in 10 years
--- OUTSIDE RECORDS SUMMARY | 2024-10-26 12:15 | XMS_ITS ---
Author Organization Antolin Sanchez MD Address [address] [place] [address] [place] [phone] Care Team Providers Care Rock Climbing Instructor Name Role Phone Antolin Sanchez Primary Care Provider [phone] REASON FOR VISIT med issue Medications Medication SIG (Take, Route, Fr equency, Duration) Notes Start Date End Date Status metFORMIN HCl ER 500 MG 2tabs Orally Onc e a day for 90 days 07/31/2024 Active Encounters Encounter Location Date Provider Diagnosis Antolin Sanchez MD [address] [place] [address] [place] [phone] 07/31/2024 Antolin Sanchez Plan Of Treatment Medication Medication Name Sig Start Date Stop Date Notes metFORMIN HCl ER 500 MG 2tabs Orally Onc e a day for 90 days 07/31/2024 Next Appt Details Provider Name:Antolin gregory, 11/02/2024 08:30:00 AM, [address] [place] [address], [address] [place] [address], [phone], Progress Notes * Juan Alberto DAVEN[birth year]DOB:[birth year] (58 yo M)Acc No.[id number]:07/31/2024 Patient:?Juan Alberto Davenport :1965???Age:58 Y???Sex:Male Address:[address] [place] [address] [place] , [facility] [place] [address] * Refills? Start metFORMIN HCl ER Tablet Extended Release 24 Hour, 500 MG, Orally, 180 Tablet, 2tabs, Once a day, 90 days, Refills=3 * true * Date:? Generated for Kinjal boyd/Nayla/Jasonitting on:?10/26/2024 12:15 PM EST
[2024-10-26 12:37] LABS: Creatinine Urine 174.99 mg/dL; Microalbum/Creatinine Ratio Ur 35.4 ug/mg cr (<30)
[2024-10-26 14:31] LABS: Alkaline Phosphatase 73 U/L (39-117)
== END 2024-10-26 07:01 | disposition home or self-care (01) ==
LOC: HO.LNP 07:00
PROVIDERS: Visit Provider Internal Medicine
DX: Z00.00 Encounter for general adult medical examination without abnormal findings (principal); E11.9 Type 2 diabetes mellitus without complications; D69.6 Thrombocytopenia, unspecified; Z12.5 Encounter for screening for malignant neoplasm of prostate
CPT/HCPCS: 80053; 80061; 81003; 82043; 82570; 83036; 84153; 85025

== ENCOUNTER 2025-01-29 11:42 | Outpatient (REF) | payer OTHER, SELFPAY ==
[2025-01-29 12:25] LABS: Alanine Aminotransferase 88 U/L (0-40); Albumin Level 4.1 g/dL (3.5-5.0); Alkaline Phosphatase 73 U/L (39-117); Aspartate Amino Transferase 46 U/L (5-37); Bilirubin Direct 0.3 mg/dL (0.0-0.5); Bilirubin Total 1.3 mg/dL (0.0-1.0); Total Protein 6.7 g/dL (6.5-8.0)
== END 2025-01-29 11:43 | disposition home or self-care (01) ==
LOC: HO.LNP 11:42
PROVIDERS: Visit Provider Internal Medicine
DX: R79.89 Other specified abnormal findings of blood chemistry (principal)
CPT/HCPCS: 80076